=== PATIENT | female | born 1960 | race Caucasian/White ===

== ENCOUNTER 2020-09-03 09:02 | Inpatient (IN) | payer BC ==
[2020-08-26 15:45] LABS: BASOPHILS % (AUTO) 0.6 % (0-1); EOSINOPHILS # (AUTO) 0.2 X10'3 (0-0.9); EOSINOPHILS % (AUTO) 2.6 % (0-6); LYMPHOCYTES # (AUTO) 2.7 X10'3 (1.1-4.8); LYMPHOCYTES % (AUTO) 40.4 % (21-51); MEAN CORPUSCULAR HEMOGLOBIN 30.9 PG (27.0-31.0); MEAN CORPUSCULAR HGB CONC 33.5 g/dL (33.0-36.5); MEAN CORPUSCULAR VOLUME 92.2 FL (78-98); MEAN PLATELET VOLUME 7.6 FL (7.4-10.4); MONOCYTES # (AUTO) 0.6 X10'3 (0-0.9); MONOCYTES % (AUTO) 9.5 % (2-12); NEUTROPHILS # (AUTO) 3.2 X10'3 (1.8-7.7); NEUTROPHILS % (AUTO) 46.9 % (42-75); PRE OP HEMATOCRIT 39.7 % (35.0-45.0); PRE OP HEMOGLOBIN 13.3 g/dL (12.0-16.0); PRE OP PLATELET COUNT 342 X10'3 (140-440); RED BLOOD COUNT 4.31 X10'6 (4.20-5.60); RED CELL DISTRIBUTION WIDTH 13.2 % (11.5-14.5)
[2020-08-26 15:57] LABS: PRE OP PROTIME 10.8 SECONDS (9.0-12.0)
[2020-08-26 16:11] LABS: ALBUMIN 4.2 G/DL (3.4-5.0); ALBUMIN/GLOBULIN RATIO 1.3 (1.1-1.5); ALKALINE PHOSPHATASE 63 IU/L (46-116); BLOOD UREA NITROGEN 9 MG/DL (7-18); BUN/CREATININE RATIO 12.9 (6.6-38.0); CALCIUM 8.9 MG/DL (8.5-10.1); CHLORIDE 105 MMOL/L (99-107); PRE OP ALT 34 U/L (30-65); PRE OP ANION GAP 8 (8-16); PRE OP AST 26 U/L (10-37); PRE OP BILIRUB, TOTAL 0.8 MG/DL (0.0-1.0); PRE OP GLUCOSE 104 MG/DL (70-104); PRE OP POTASSIUM 3.4 MMOL/L (3.4-5.1); PRE OP SODIUM 143 MMOL/L (135-145); TOTAL CARBON DIOXIDE 30.2 MMOL/L (24-32); TOTAL PROTEIN 7.4 G/DL (6.4-8.2); eGFR 86 ML/MIN
[2020-09-03] VITALS (21 sets, daily range): BP systolic 88–150; BP diastolic 34–81
[~2020-09-03] VITALS: Ht 160 cm; Wt 99.4 kg
[~2020-09-03 09:02] MED LIST: DICL100G30 TP; OXYC-658 PO; PARO12.519 PO; PARO37.511 PO; SIMV-45 PO; TRANEXAMIC ACID 1 GM IN NACL,ISO-OS 100 ML IV ONE; ceFAZolin 2gm in dextrose, iso 50 ML IV ONE; famotidine 20mg tablet PO ONE; ringers solution, lacted 1,000 ML IV SCH; vancomycin 1,500 MG in NS 300ml IV soln IV ONE
[2020-09-03] MEDS ORDERED: meperidine/PF 25mg/ml syringe IV ONE (10:25)
[2020-09-03] MEDS ORDERED: fentaNYL/PF 50MCG/1 ML 2ML syringe ONE ×2 (10:55→11:55)
[2020-09-03] MEDS ORDERED: glycopyrrolate 0.2mg/ml inj ONE (10:56)
[2020-09-03] MEDS ORDERED: sevoflurane 250ml liquid IH ONE (10:56)
[2020-09-03] MEDS ORDERED: MIDAZolam 5mg/5ml vial ONE (10:56)
[2020-09-03] MEDS ORDERED: ceFAZolin inj. 3,000 MG in sodium chloride irrig. sol 3,000 ML IR ONE (11:00)
[2020-09-03] MEDS ORDERED: ketamine 50mg/5ml syringe ONE (11:48)
[2020-09-03] MEDS ORDERED: propofol inj 20 ML IV ONE ×3 (12:52→13:31)
[2020-09-03] MEDS ORDERED: LIDOcaine 1%/PF 5ML 10 MG/ML VIAL ONE (12:52)
[2020-09-03] MEDS ORDERED: diphenhydrAMINE 50 mg/ml inj ONE (12:52)
[2020-09-03] MEDS ORDERED: ondansetron/PF 4mg/2ml inj ONE (13:31)
[2020-09-03] MEDS ORDERED: ringers solution, lacted 1,000 ML IV SCH (13:50)
[2020-09-03] MEDS ORDERED: meperidine/PF 25mg/ml syringe IV PRN ×2 (13:50)
[2020-09-03] MEDS ORDERED: HYDROmorphone/PF 0.2 MG/ML SYRINGE IV PRN ×2 (13:50)
[2020-09-03] MEDS ORDERED: ondansetron/PF 4mg/2ml inj IV PRN ×2 (13:50→14:15)
[2020-09-03] MEDS ORDERED: albumin (Human) 5% 250ml 250 ML IV ONE (13:56)
[2020-09-03] MEDS ORDERED: acetaminophen 1,000mg/100ml IV 100 ML IV ONE (13:56)
--- NOTE | 2020-09-03 14:10 | NUR ---
Received from OR via BED , accompanied by Anesthesiologist DR DICKENS and report given by Anesthesiolgist. PATIENT WAKING UP, DENIES PAIN, V/S WNL, NEUROVASCULAR CHECKS INTACT, 18G PIV RUE , BELIA DRESSING TO RIGHT HIP CDI W/ COLD POWDER PACK , SENSATION T-10. F.C DRAINING CLEAR YELLOW URINE
[2020-09-03] MEDS ORDERED: acetaminophen 325mg tablet PO PRN (14:15)
[2020-09-03] MEDS ORDERED: magnesium hydroxide 30ml (MOM) UD suspension PO PRN (14:15)
[2020-09-03] MEDS ORDERED: bisacodyl 10mg suppository rectal RC PRN (14:15)
[2020-09-03] MEDS ORDERED: diphenhydrAMINE 25mg capsule PO PRN ×2 (14:15)
--- NOTE | 2020-09-03 15:30 | NUR ---
PATIENT A&OX4, DENIES PAIN, V/S WNL, NEUROVASCULAR CHECKS INTACT, 18G PIV RUE , BELIA DRESSING TO RIGHT HIP CDI W/ COLD POWDER PACK , SENSATION T-10. F.C DRAINING CLEAR YELLOW URINE. PATIENT TAKEN TO 4023 WITH ALL BELONGINGS AND HOOKED UP TO MONITORS IN ROOM AND REPORT GIVEN TO RN WHO HAS TAKEN OVER PATIENT CARE
--- NOTE | 2020-09-03 15:34 | NUR ---
received report from recovery, pt expected imminently to room 0189k
[2020-09-03] MEDS: oxyCODONE IR 5mg (immed. release) tablet PO PRN (16:37)
[2020-09-03] MEDS: aspirin 81mg tablet.DR PO SCH (16:37)
[2020-09-03] MEDS: ceFAZolin/D5W- 1GM premix 50 ML IV SCH (16:37)
[2020-09-03] MEDS: HYDROmorphone 1 mg/ml syringe IV PRN ×2 (17:51→22:40)
--- NOTE | 2020-09-03 18:50 | NUR ---
Patient in room [facility]TH[facility] 4023. I have received report from JOANNE Hylton and had the opportunity to ask questions and assume patient care.
[2020-09-03] MEDS: potassium Cl 20mEq in NS 1,000 ML IV SCH (18:53)
[2020-09-03] MEDS ORDERED: vancomycin/NS 1 GM ADD-VANTAGE 250 ML IV SCH (20:00)
[2020-09-03] MEDS: sennosides 8.6mg tablet PO SCH (20:41)
[2020-09-03] MEDS: PARoxetine 20mg tablet PO SCH (20:41)
[2020-09-04] MEDS: ceFAZolin/D5W- 1GM premix 50 ML IV SCH (00:07)
[2020-09-04 02:00] VITALS: BP 104/51
[2020-09-04] MEDS: oxyCODONE IR 5mg (immed. release) tablet PO PRN ×3 (02:27→23:59)
[2020-09-04] MEDS: potassium Cl 20mEq in NS 1,000 ML IV SCH ×3 (03:35→23:58)
[2020-09-04 06:00] VITALS: BP 116/50
--- NOTE | 2020-09-04 06:28 | NUR ---
Problems reprioritized. Patient report given, questions answered & plan of care reviewed with JOANNE Hylton.
[2020-09-04] MEDS ORDERED: oxyCODONE IR 5mg (immed. release) tablet PO PRN (07:10)
[2020-09-04 07:47] LABS: BASOPHILS % (AUTO) 0.3 % (0-1); EOSINOPHILS # (AUTO) 0.1 X10'3 (0-0.9); HEMOGLOBIN 10.1 g/dl (12.0-16.0); LYMPHOCYTES # (AUTO) 1.6 X10'3 (1.1-4.8); LYMPHOCYTES % (AUTO) 20.4 % (21-51); MEAN CORPUSCULAR HEMOGLOBIN 31.4 PG (27.0-31.0); MEAN CORPUSCULAR HGB CONC 33.7 g/dL (33.0-36.5); MEAN CORPUSCULAR VOLUME 93.3 FL (78-98); MEAN PLATELET VOLUME 7.8 FL (7.4-10.4); MONOCYTES # (AUTO) 0.9 X10'3 (0-0.9); MONOCYTES % (AUTO) 10.9 % (2-12); NEUTROPHILS # (AUTO) 5.3 X10'3 (1.8-7.7); NEUTROPHILS % (AUTO) 67.4 % (42-75); PLATELET COUNT 247 X10'3 (140-440); RED BLOOD COUNT 3.21 X10'6 (4.20-5.60); RED CELL DISTRIBUTION WIDTH 12.9 % (11.5-14.5); WHITE BLOOD COUNT 7.9 X10'3 (4.5-11.0)
[2020-09-04] MEDS: HYDROmorphone 1 mg/ml syringe IV PRN ×3 (07:57→20:08)
[2020-09-04] MEDS ORDERED: PARoxetine 10mg tablet PO SCH (08:00)
[2020-09-04] MEDS: aspirin 81mg tablet.DR PO SCH ×2 (08:00→17:26)
[2020-09-04] MEDS ORDERED: PARoxetine 20mg tablet PO SCH (08:00)
[2020-09-04] MEDS ORDERED: PARoxetine 30mg tablet PO SCH (08:00)
[2020-09-04 08:21] LABS: ALANINE AMINOTRANSFERASE 29 U/L (12-78); ALBUMIN 3.4 G/DL (3.4-5.0); ALBUMIN/GLOBULIN RATIO 1.3 (1.1-1.5); ALKALINE PHOSPHATASE 52 IU/L (46-116); ANION GAP 8 (8-16); ASPARTATE AMINO TRANSFERASE 36 U/L (10-37); BLOOD UREA NITROGEN 13 MG/DL (7-18); BUN/CREATININE RATIO 17.8 (6.6-38.0); CALCIUM 8.3 MG/DL (8.5-10.1); CHLORIDE 105 MMOL/L (99-107); CREATININE 0.73 MG/DL (0.40-0.90); GLUCOSE 131 MG/DL (70-104); SODIUM 140 MMOL/L (135-145); TOTAL CARBON DIOXIDE 26.8 MMOL/L (24-32); TOTAL PROTEIN 6.1 G/DL (6.4-8.2); eGFR 82 ML/MIN
[2020-09-04 10:00] VITALS: BP 106/47
[2020-09-04 14:00] VITALS: BP 131/65
[2020-09-04 18:00] VITALS: BP 123/49
--- NOTE | 2020-09-04 18:49 | NUR ---
Patient in room ORTHO 4023. I have received report from Concetta RUBIO and had the opportunity to ask questions and assume patient care.
[2020-09-04] MEDS: sennosides 8.6mg tablet PO SCH (21:08)
[2020-09-04] MEDS: PARoxetine 20mg tablet PO SCH (21:08)
[2020-09-04 22:00] VITALS: BP 124/53
[2020-09-05] MEDS: oxyCODONE IR 5mg (immed. release) tablet PO PRN ×2 (05:36→11:19)
[2020-09-05 06:00] VITALS: BP 105/48
--- NOTE | 2020-09-05 06:33 | NUR ---
Problems reprioritized. Patient report given, questions answered & plan of care reviewed with Concetta RUBIO.
[2020-09-05 06:51] LABS: BASOPHILS % (AUTO) 0.3 % (0-1); EOSINOPHILS # (AUTO) 0.1 X10'3 (0-0.9); EOSINOPHILS % (AUTO) 1.8 % (0-6); HEMATOCRIT 26.2 % (35.0-45.0); LYMPHOCYTES # (AUTO) 1.5 X10'3 (1.1-4.8); LYMPHOCYTES % (AUTO) 19.5 % (21-51); MEAN CORPUSCULAR HEMOGLOBIN 31.7 PG (27.0-31.0); MEAN CORPUSCULAR HGB CONC 34.5 g/dL (33.0-36.5); MEAN CORPUSCULAR VOLUME 91.8 FL (78-98); MEAN PLATELET VOLUME 7.6 FL (7.4-10.4); MONOCYTES % (AUTO) 13.9 % (2-12); NEUTROPHILS # (AUTO) 4.8 X10'3 (1.8-7.7); NEUTROPHILS % (AUTO) 64.5 % (42-75); PLATELET COUNT 212 X10'3 (140-440); RED BLOOD COUNT 2.85 X10'6 (4.20-5.60); RED CELL DISTRIBUTION WIDTH 13.2 % (11.5-14.5); WHITE BLOOD COUNT 7.5 X10'3 (4.5-11.0)
[2020-09-05] MEDS ORDERED: ASPI-1071 PO (07:17)
[2020-09-05] MEDS ORDERED: HYDR-4298 PO (07:24)
[2020-09-05 07:36] LABS: ALANINE AMINOTRANSFERASE 24 U/L (12-78); ALKALINE PHOSPHATASE 48 IU/L (46-116); ANION GAP 5 (8-16); ASPARTATE AMINO TRANSFERASE 30 U/L (10-37); BLOOD UREA NITROGEN 8 MG/DL (7-18); BUN/CREATININE RATIO 12.9 (6.6-38.0); CALCIUM 8.4 MG/DL (8.5-10.1); CHLORIDE 105 MMOL/L (99-107); CREATININE 0.62 MG/DL (0.40-0.90); GLUCOSE 118 MG/DL (70-104); SODIUM 140 MMOL/L (135-145); TOTAL CARBON DIOXIDE 29.6 MMOL/L (24-32); TOTAL PROTEIN 5.9 G/DL (6.4-8.2); eGFR > 90 ML/MIN
[2020-09-05] MEDS: aspirin 81mg tablet.DR PO SCH (08:09)
[2020-09-05 10:00] VITALS: BP 130/83
== END 2020-09-05 12:00 | disposition home or self-care (01) | DRG 470 ==
LOC: PRE-OP 09:02 → ORTHO 4S 14:14
PROVIDERS: ADMIT Orthopaedic Surgery; ATTEND Orthopaedic Surgery
PROC: 0SR904Z Replacement of Right Hip Joint with Ceramic on Polyethylene Synthetic Substitute, Open Approach (ICD-10-PCS; principal; 2020-09-03 10:56)
DX: M16.11 Unilateral primary osteoarthritis, right hip (principal); F32.9 Major depressive disorder, single episode, unspecified; D50.0 Iron deficiency anemia secondary to blood loss (chronic); Z88.5 Allergy status to narcotic agent
CPT/HCPCS: 36415; 80053; 82948; 85025; 85610; 85730; 86885; 86900; 86901; 86920; 87081; 87635; 93005; 97110; 97116; 97161; 97530; G0378; J0131; J0690; J1170; J1200; J2175; J2250; J2405; J2704; J3010; J3370; J3480; J3490; J7040; J7120; P9045